=== PATIENT | male | born 1980 | race Caucasian/White ===

== ENCOUNTER → 2023-05-20 | Outpatient (CLI) | payer OTHER ==
[~2023-05-20] MED LIST: CIPR-249 PO; FLOM0.4C39 PO; IBUP-1022 PO; KETO10TAB PO; LEVO1TAB40 PO; METR-265 PO; OMEP40CA5 PO; ONDA4TAB6 PO; OXYC1TAB23 PO
[2023-05-20 12:15] LABS: BASO % 0.5 % (0.0-1.0); EOS # 0.1 10^3/uL (0.0-0.5); EOS % 1.8 % (0.0-3.0); HEMATOCRIT 46.3 % (42.0-52.0); HEMOGLOBIN 15.8 g/dl (13.5-17.5); LYMPH # 1.4 10^3/uL (1.5-5.0); LYMPH % 21.2 % (24.0-44.0); MEAN CORPUSCULAR HGB CONC 34.1 g/dl (32.0-36.5); MONO # 0.5 10^3/uL (0.0-0.8); MONO % 7.8 % (2.0-8.0); NEUTROPHILS # 4.5 10^3/uL (1.5-8.5); NEUTROPHILS % 68.4 % (36.0-66.0); PLATELET COUNT, AUTOMATED 273 10^3/uL (150-450); RED BLOOD COUNT 5.45 10^6/uL (4.30-6.10); WHITE BLOOD COUNT 6.6 10^3/uL (4.0-10.0)
[2023-05-20 12:37] LABS: ALBUMIN 4.1 G/DL (3.2-5.2); ALKALINE PHOSPHATASE 74 U/L (46-116); ALT/SGPT 50 U/L (7.0-40); AST/SGOT 22 U/L (<34); BILIRUBIN,DIRECT 0.2 MG/DL (<0.4); BILIRUBIN,TOTAL 0.5 MG/DL (0.3-1.2); BLOOD UREA NITROGEN 11 MG/DL (9-23); GLOMERULAR FILTRATION RATE > 60.0 (>60); TOTAL PROTEIN 6.7 G/DL (5.7-8.2)
== END ==
LOC: M LAB 11:50
PROVIDERS: ATTEND Internal Medicine Gastroenterology
DX: K83.09 Other cholangitis (principal)

== ENCOUNTER 2023-05-26 12:01 | Day surgery (SDC) | payer OTHER ==
[~2023-05-26] VITALS: Ht 170.2 cm; Wt 83.6 kg
[~2023-05-26 12:01] MED LIST changes: +NS 1,000 ML IV ONE
[2023-05-26] MEDS ORDERED: LR 1,000 ML IV SCH (12:05)
[2023-05-26] MEDS ORDERED: LIDOCAINE 2% 100MG/5ML SDV (FOR ANES.) As Ordered ONE (13:08)
[2023-05-26] MEDS ORDERED: MIDAZOLAM INJ 2MG/2ML VIAL As Ordered ONE (13:08)
[2023-05-26] MEDS ORDERED: fentaNYL 100 MCG/2 ML INJECTION As Ordered ONE (13:08)
[2023-05-26] MEDS ORDERED: ROCURONIUM BROMIDE 50MG/5ML VIAL As Ordered ONE (13:08)
[2023-05-26] MEDS ORDERED: propofoL 200 MG/20 ML VIAL As Ordered ONE (13:08)
[2023-05-26] MEDS ORDERED: ISOVUE-300 61% 100ML VIAL As Ordered ONE (13:51)
[2023-05-26] MEDS ORDERED: SIMETHICONE 40MG/0.6ML DROPS 30ML As Ordered ONE (13:51)
[2023-05-26] MEDS ORDERED: ONDANSETRON 4MG 2ML VIAL As Ordered ONE (14:32)
[2023-05-26] MEDS ORDERED: SUGAMMADEX SODIUM 500 MG/5 ML VIAL (BRIDION) As Ordered ONE (14:37)
[2023-05-26] MEDS ORDERED: fentaNYL 100 MCG/2 ML INJECTION IV PRN (15:10)
[2023-05-26] MEDS ORDERED: ONDANSETRON 4MG 2ML VIAL IV PRN (15:10)
[2023-05-26] MEDS ORDERED: MORPHINE 2 MG/ML 1ML VIAL IV PRN (15:10)
[2023-05-26] MEDS ORDERED: oxyCODONE 5MG TAB PO PRN (15:10)
[2023-05-26 15:52] VITALS: BP 131/85; TEMP 97.2; O2SAT 99
== END 2023-05-26 16:15 | disposition home or self-care (01) ==
LOC: M SDC 12:01
PROVIDERS: ATTEND Internal Medicine Gastroenterology
DX: K80.50 Calculus of bile duct without cholangitis or cholecystitis without obstruction (principal); Z46.59 Encounter for fitting and adjustment of other gastrointestinal appliance and device; Z96.89 Presence of other specified functional implants; K80.30 Calculus of bile duct with cholangitis, unspecified, without obstruction; K21.9 Gastro-esophageal reflux disease without esophagitis; Z79.899 Other long term (current) drug therapy
CPT/HCPCS: 43262; 43264; 43275; 74330; C1889; J1100; J2250; J2405; J3010; Q9967